=== PATIENT | female | born 1985 | race Caucasian/White ===

== ENCOUNTER 2020-12-11 19:42 | Emergency (ER) | payer OTHER ==
[~2020-12-11] VITALS: Ht 170.2 cm; Wt 59.0 kg
[~2020-12-11 19:42] MED LIST: CALCIO PO; PRENATAL 19 TA1 EAC1 PO; SYNTHROID175 MCG; SYNTHROID88 MCG
[2020-12-11] MEDS ORDERED: SYNTHROID175 MCG (20:10)
[2020-12-11] MEDS ORDERED: SYNTHROID150 MCG (20:10)
[2020-12-12] MEDS ORDERED: PERCOCET 5-3251 EACH PO (00:30)
== END 2020-12-12 00:32 | disposition home or self-care (01) ==
LOC: ER 19:42
DX: S92.354A Nondisplaced fracture of fifth metatarsal bone, right foot, initial encounter for closed fracture (principal); W18.39XA Other fall on same level, initial encounter; Y93.89 Activity, other specified; Y92.89 Other specified places as the place of occurrence of the external cause; Y99.8 Other external cause status

== ENCOUNTER 2023-08-19 15:25 | Outpatient (CLI) | payer OTHER ==
[~2023-08-19 15:25] MED LIST changes: +PERCOCET 5-3251 EACH PO; +SYNTHROID150 MCG
== END 2023-08-19 16:31 | disposition home or self-care (01) ==
LOC: NST 15:25
PROVIDERS: ATTEND Obstetrics & Gynecology
DX: Z34.83 Encounter for supervision of other normal pregnancy, third trimester (principal)

== ENCOUNTER → 2025-04-30 | Emergency (ER) | payer OTHER ==
[~2025-04-30] VITALS: Ht 170.2 cm; Wt 60.8 kg
[~2025-04-30] MED LIST changes: +DEXAMETHASONE SODIUM PHOSPHATE 4 MG/ML VIAL IM ONE; +DEXAMETHASONE SODIUM PHOSPHATE 4 MG/ML VIAL ONE; +IRON18 MG PO; +OMEPRAZOLE20 MG; +PRENATAL TABLE1 EAC4 PO; +SYNTHROID200 MCG PO
== END | disposition home or self-care (01) ==
LOC: ER 12:58
DX: S00.83XA Contusion of other part of head, initial encounter (principal); W19.XXXA Unspecified fall, initial encounter; Y93.89 Activity, other specified; Y92.69 Other specified industrial and construction area as the place of occurrence of the external cause; Y99.8 Other external cause status